=== PATIENT | female | born 1985 | race Caucasian/White ===

== ENCOUNTER 2017-10-29 10:15 | Outpatient (CLI) | payer MEDICAID ==
[2017-10-29 11:07] LABS: APPEARANCE,URINE SLIGHTLY-CLOUDY; BILIRUBIN,URINE NEGATIVE (NEGATIVE); COLOR,URINE YELLOW; GLUCOSE, URINE NEGATIVE (NEGATIVE); KETONES,URINE NEGATIVE (NEGATIVE); LEUKOCYTE ESTERASE,URINE TRACE (NEGATIVE); NITRITE,URINE NEGATIVE (NEGATIVE); PROTEIN,URINE NEGATIVE (NEGATIVE); URINE SPECIFIC GRAVITY 1.014; UROBILINOGEN,URINE NEGATIVE mg/dL (<2.0)
[2017-10-29 11:24] LABS: URINE AMPHETAMINES SCREEN NEGATIVE; URINE BARBITURATES SCREEN NEGATIVE; URINE BENZODIAZEPINES SCREEN NEGATIVE; URINE COCAINE SCREEN NEGATIVE; URINE MARIJUANA (THC) SCREEN NEGATIVE; URINE METHADONE SCREEN NEGATIVE; URINE PHENCYCLIDINE SCREEN NEGATIVE
--- NOTE | 2017-10-29 12:45 | RADIOLOGY REPORT (SQ) ---
EXAM DESCRIPTION: U/S OB TRANSVAG W/DOPPLER COMPLETED DATE/TIME: 10/29/2017 12:29 pm REASON FOR STUDY: Pt stated approx 31wks preg, Please confirm COMPARISON: None. TECHNIQUE: Endovaginal static and realtime grayscale images acquired of the pelvis. Additional selec lucien spectral and color Doppler images recorded. All images stored on PACs. 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 GESTATIONAL SAC: At the junction of the cervix and lower uterine segment, an anechoic cystic structur e 4 mm in size is present. This is likely a nabothian cyst or endometrial cyst. with the unlikely given the negative urine and serum HCG assessment today YOLK SAC: No POLE: No RIGHT ADNEXA: Not visualized due to bowel gas LEFT ADNEXA: Not visualized due to bowel gas FREE FLUID: None. OTHER: No other significant finding. IMPRESSION: Anechoic cystic structure is seen in the lower uterine segment, possibly a nabothian cys t at the superior margin of the cervix or small cyst along the endometrium. A Gestational sac or pse udo gestational sac is unlikely, given that the patient's steroid and urine HCG values today are nega tive. Unable visualize ovaries due to adnexal bowel gas. CONSIDER F/U BHCG AND/OR ULTRASOUND FOR VERIFICATION AND TO EXCLUDE ECTOPIC . Trimester of : First - 0 to 13 weeks. TECHNICAL DOCUMENTATION: JOB ID: [id number] [employer]- All Rights Reserved
== END 2017-10-29 12:58 | disposition home or self-care (01) ==
LOC: LC 10:15
PROVIDERS: ATTEND Student in an Organized Health Care Education/Training Program
DX: O34.03 Maternal care for unspecified congenital malformation of uterus, third trimester (principal); Q51.3 Bicornate uterus; Z3A.31 31 weeks gestation of pregnancy; N91.2 Amenorrhea, unspecified
CPT/HCPCS: 36415; 76817; 80307; 81001; 81025; 84702; 86850; 86900; 86901; 93976

== ENCOUNTER 2019-02-09 22:21 | Emergency (ER) | payer SELFPAY ==
--- NOTE | 2019-02-09 23:46 | ER Document Report ---
ED GI/ - General Chief Complaint: Vaginal Pain Stated Complaint: VAGINAL PAIN Time Seen by Provider: 02/09/19 23:25 Primary Care Provider: [facility] [Provider Group] - Follow up as needed [facility] [Provider Group] - Follow up as needed TRAVEL OUTSIDE OF THE [place] IN LAST 30 DAYS: No - HPI Notes: 02/09/19 23:40 Patient is a 33 year old female who presents to the emergency department today for a one month history of vaginal pain. States that the pain is like a "jabbing", reports itching, reports clear vaginal "liquid" discharge which was originally thick and white one month ago. No vaginal odor. Has attempted OTC medication such as monistat and axo without relief. Denies urinary symptoms. LMP January 28, states having one sexual partner who is her , not concerned about STI's, no use of control but states unable to have sexual intercourse over the past month due to the pain. Patient delayed seeking medical treatment due to insurance issues. Reports vaginal itching. - Related Data Allergies/Adverse Reactions: No Known Allergies Allergy (Unverified 10/29/17 11:45) Past Medical History - General Information source: Patient - Social History Smoking Status: Current Every Day Smoker Cigarette use (# per day): Yes Smoking Education Provided: Yes Lives with: Spouse/Significant other Family History: None - Past Medical History Cardiac Medical History: Reports: None Pulmonary Medical History: Reports: None EENT Medical History: Reports: None Neurological Medical History: Reports: None Endocrine Medical History: Reports: None Renal/ Medical History: Reports: None Malignancy Medical History: Reports: None GI Medical History: Reports: None Musculoskeletal Medical History: Reports None Skin Medical History: Reports None Psychiatric Medical History: Reports: None Traumatic Medical History: Reports: None Infectious Medical History: Reports: None Surgical Hx: Negative Past Surgical History: Reports: Hx Coronary Stent - Stent to aorta at age 7 Review of Systems - Review of Systems Constitutional: No symptoms reported EENT: No symptoms reported Cardiovascular: No symptoms reported Respiratory: No symptoms reported Gastrointestinal: No symptoms reported Genitourinary: No symptoms reported Female Genitourinary: See HPI Musculoskeletal: No symptoms reported Skin: No symptoms reported Hematologic/Lymphatic: No symptoms reported Neurological/Psychological: No symptoms reported Physical Exam - Vital signs Vitals: Temp Pulse Resp BP Pulse Ox 98.1 F 84 20 151/90 H 98 04/23/19 22:23 02/09/19 22:23 02/09/19 22:23 02/09/19 22:23 02/09/19 22:23 - Respiratory Respiratory status: No respiratory distress Chest status: Nontender Breath sounds: Normal Chest palpation: Normal - Cardiovascular Rhythm: Regular Heart sounds: Normal auscultation, S1 appreciated, S2 appreciated Murmur: No - Abdominal Inspection: Normal Distension: No distension Bowel sounds: Normal Tenderness: Nontender Organomegaly: No organomegaly Course - Re-evaluation Re-evalutation: 02/09/19 23:45 Due to chief complaint, will setup for pelvic exam and obtain vaginal specimens. Patient in agreement with plan. Denies questions at this time. 02/10/19 01:39 Updated patient on lab results. We will go ahead and give first dose of Diflucan to treat for yeast. She will also be placed on Keflex for the cellulitis/dermatitis, first dose to be given in the ER. It was also noted that the patient had a large amount of glucose in her urine. Patient denies history of diabetes. States that she has been urinating more frequently. Will obtain a BMP and Hemoglobin A1C. Patient updated on plan of care, at bedside, no acute distress. Patient did state during pelvic exam 1 month ago her and her used an oyvb-bfn-thpgoht lubricant and that the pain, discomfort, and discharge started after this. It was noted that patient's blood glucose was 309. Carbon dioxide 25, anion gap 8, chloride 103. Hemoglobin A1c was 10.9. Patient denies a history of diabetes. Explained in great detail with patient the importance of following up with a primary care provider to manage the diabetes. Patient states that she does not have health insurance. Provide patient at discharge with information for the [facility] and the [facility]. Directed patient and his significant other to call later today to make an appointment as soon as possible. Due to the patient's hemoglobin A1c of 10.9, explained to patient the diabetes appears to have been going on for months which could have led to the increased urinary frequency. Educated patient on limiting high carbohydrate food and foods high in sugar as this can raise the blood sugar. Also explained to patient to take Keflex which is an antibiotic as prescribed for the surrounding cellulitis and affected areas around the vagina. Treated patient with 1 dose of Diflucan prior to discharge and gave patient a prescription for Diflucan to take after completion of her 1 week dose of antibiotic. Instructed patient on strict return precautions to include vomiting, diarrhea, vomiting fever, worsening of vaginal pain, development of an abscess or significant drainage from the vagina, or any other concerning signs or symptoms. Patient can significant other verbalized understanding and denied questions. - Vital Signs Vital signs: Temp Pulse Resp BP Pulse Ox 97.6 F 84 16 142/80 H 100 02/10/19 03:58 02/10/19 03:58 02/10/19 03:58 02/10/19 03:58 02/10/19 03:58 - Laboratory Result Diagrams: 02/10/19 01:45 Laboratory results interpreted by me: 02/10/19 02/10/19 02/10/19 00:12 01:45 01:45 Sodium 136.2 L BUN 6 L Creatinine 0.45 L Glucose 309 H Hemoglobin A1c % 10.9 H Urine Glucose (UA) >=500 H Urine Blood LARGE H Ur Leukocyte Esterase MODERATE H Large amount of glucose noted in the urine. Will obtain BMP and HA1C. Hemoglobin A1c 10.9, Glucose 309, Moderate Leuks in the urine - patient is being prescribed Keflex for her cellulitis and Metformin for blood glucose with strick return precautions. Procedures - Pelvic Exam Pelvic exam Time completed: 13:10 Cultures obtained: Yes Wet prep obtained: Yes Herpes culture obtained: No Foreign body removed: Yes - Small thin 1.5 cm string removed Bimanual exam performed: Yes Witnessed by: Dakotah Yanes PA-C, Nurse Tech Notes: 02/10/19 01:18 Patient complains of rectal irritation - upon exam four external non-thrombosed hemorrhoids noted, around rectum erthyema noted as well as white discharge consistent with yeast. External genitalia showed + swelling, erythema, multiple areas of excoriation with dried scabs, on the right upper posterior thigh one of the scabs had an area of surrounding cellulitis. The area is draining. Discharge - Discharge Clinical Impression: Usha rash of groin Cellulitis Qualifiers: Site of cellulitis: other site Qualified Code(s): L03.818 - Cellulitis of other sites Diabetes Qualifiers: Diabetes mellitus type: type 2 Diabetes mellitus long term care phlebotomist insulin use: unspecified long term care phlebotomist insulin use status Diabetes mellitus complication status: with unspecified complications Qualified Code(s): E11.8 - Type 2 diabetes mellitus with unspecified complications Condition: Stable Disposition: HOME, SELF-CARE Additional Instructions: You were seen today in the emergency department for vaginal pain. You do have a yeast infection externally. We have given you 1 dose of Diflucan while in the ER. We will be prescribing another dose of Diflucan which she will take after the completion of your antibiotic. You also do have a few open wounds and some surrounding cellulitis. These do not need to be cut and drained at this time. Please return if any of these wounds become larger. You are being prescribed Keflex which is an antibiotic. Take as prescribed and complete the full course of medication. It was also noted that you had a significant amount of glucose (sugar) in your urine. We did check some lab work and your blood sugar was in the 300s. It does appear that you have type 2 diabetes. Your yeast infection could be a complication of the diabetes. I am prescribing you metformin. This is a medication used to treat diabetes. 1 of the most common side effects is stomach upset. I am giving you a 1 month prescription as well as one refill. It is imperative that you have close follow-up with a physician. I am referring you to the [facility] as well as the [facility]. These are clinics that help people who do not have insurance. Please call them tomorrow to make an appointment. THIS IS VERY IMPORTANT THAT YOU HAVE FOLLOW UP! Uncontrolled diabetes can lead to heart problems, heart disease, strokes, kidney damage and other medical problems. Please return to the emergency department if you have any worsening symptoms to include vomiting, chest pain, shortness of breath, dizziness, uncontrollable vomiting, fever, worsening vaginal pain that is not getting any better with the antibiotics or the Diflucan. Diabetes You have an abnormally high blood sugar, suspicious for diabetes. Not all high blood sugar requires long-term treatment. High blood sugar can be due to medications, , or the stress of illness. (These cases are "borderline diabetes.") If the doctor feels your high blood sugar might get better with time, you may not require treatment now. You will be scheduled for further evaluation. It's very important that you follow through. Uncontrolled high blood sugar leads to early heart disease, strokes, nerve damage, eye damage, and kidney damage. All diabetics should follow a diet designed to control the blood sugar. Overweight diabetics should exercise regularly and lose weight. If this is not sufficient to control the blood sugar, pills or insulin shots are necessary. Younger people who develop diabetes almost always require insulin daily. Home testing of blood sugars or urine sugar is required. Diabetic teaching is available to help you figure insulin doses and monitor the blood sugar. Call the physician if there is faintness, excess sleepiness, or very rapid breathing. If hypoglycemia (LOW blood sugar) develops, symptoms are shakiness, weakness, sweating, and confusion. In this case, you should eat or drink something with sugar at once. Prescriptions: Cephalexin Monohydrate [Keflex 500 mg Capsule] 500 mg PO Q6H 7 Days #28 capsule Fluconazole [Diflucan] 150 mg PO ONCE PRN #1 tablet PRN Reason: Metformin HCl [Glucophage 500 mg Tablet] 500 mg PO BID #60 tablet Referrals: [facility] [Provider Group] - Follow up as needed [facility] [Provider Group] - Follow up as needed
[2019-02-10 00:36] LABS: APPEARANCE,URINE CLOUDY; BILIRUBIN,URINE NEGATIVE (NEGATIVE); COLOR,URINE YELLOW; GLUCOSE, URINE >=500 mg/dL (NEGATIVE); KETONES,URINE NEGATIVE (NEGATIVE); LEUKOCYTE ESTERASE,URINE MODERATE (NEGATIVE); NITRITE,URINE NEGATIVE (NEGATIVE); PROTEIN,URINE NEGATIVE (NEGATIVE); URINE SPECIFIC GRAVITY 1.033; UROBILINOGEN,URINE NEGATIVE mg/dL (<2.0)
[2019-02-10 01:26] LABS: BACTERIA (WET MOUNT) 4+ BACTERIA SEEN; EPITHELIALS (WET MOUNT) 4+ EPITHELIALS SEEN; RBCS (WET MOUNT) 1+ RBCS SEEN; T.VAGINALIS (WET MOUNT) NO TRICHOMONAS SEEN; WBCS (WET MOUNT) 1+ WBCS SEEN; YEAST (WET MOUNT) NO YEAST SEEN
[2019-02-10] MEDS ORDERED: FLUCONAZOLE 100 MG TABLET PO ONE (01:26)
[2019-02-10] MEDS ORDERED: CEPHALEXIN 500 MG CAPSULE PO ONE (01:27)
[2019-02-10 02:17] LABS: ANION GAP 8 (5-19); BLOOD UREA NITROGEN 6 mg/dL (7-20); CALCIUM 9.3 mg/dL (8.4-10.2); CARBON DIOXIDE 25 mmol/L (22-30); CHLORIDE 103 mmol/L (98-107); GLUCOSE 309 mg/dL (75-110); POTASSIUM 3.8 mmol/L (3.6-5.0); SODIUM 136.2 mmol/L (137-145)
[2019-02-10 02:54] LABS: CHLAM PCR NOT DETECTED (NOT DETECT); GON PCR NOT DETECTED (NOT DETECT)
[2019-02-10 04:01] VITALS: BP 142/80
== END 2019-02-10 04:20 | disposition home or self-care (01) ==
LOC: ER 22:21
DX: B37.49 Other urogenital candidiasis (principal); L03.818 Cellulitis of other sites; E11.8 Type 2 diabetes mellitus with unspecified complications; R10.2 Pelvic and perineal pain; F17.210 Nicotine dependence, cigarettes, uncomplicated
CPT/HCPCS: 36415; 80048; 81001; 81025; 83036; 87210; 87491; 87591; 99283

== ENCOUNTER 2019-08-05 12:21 | Emergency (ER) | payer SELFPAY ==
--- NOTE | 2019-08-05 13:02 | ER Document Report ---
ED Medical Screen (RME) - General Chief Complaint: Vaginal Itching Stated Complaint: VAGINAL PROBLEM Time Seen by Provider: 08/05/19 13:01 Mode of Arrival: Ambulatory Information source: Patient Notes: 33-year-old female presented to ED for complaint of vaginal itching and sores. She states she was here in January for the same symptoms and was diagnosed with bacterial vaginosis and yeast infection. She states they gave her medications and these were cleared up and she has not had any problems until today. She denies any vaginal discharge pain any abdominal pain any nausea or vomiting. Last menstrual cycle started July 29 and ended on the . I have greeted and performed a rapid initial assessment of this patient. A comprehensive ED assessment and evaluation of the patient, analysis of test results and completion of medical decision making process will be conducted by an additional ED providers. TRAVEL OUTSIDE OF THE [place] IN LAST 30 DAYS: No - Related Data Allergies/Adverse Reactions: No Known Allergies Allergy (Verified 08/05/19 12:50) Past Medical History - Social History Chew tobacco use (# tins/day): No Frequency of alcohol use: None Drug Abuse: None Renal/ Medical History: Denies: Hx Peritoneal Dialysis Past Surgical History: Reports: Hx Cardiac Surgery - open heart at 7yo, Hx Coronary Stent - Stent to aorta at age 7 Physical Exam - Vital signs Vitals: Temp Pulse Resp BP Pulse Ox 98.2 F 103 H 18 148/82 H 100 08/05/19 12:50 08/05/19 12:50 08/05/19 12:50 08/05/19 12:50 08/05/19 12:50 Course - Vital Signs Vital signs: Temp Pulse Resp BP Pulse Ox 98.2 F 103 H 18 148/82 H 100 08/05/19 12:50 08/05/19 12:50 08/05/19 12:50 08/05/19 12:50 08/05/19 12:50
--- NOTE | 2019-08-05 14:36 | ER Document Report ---
ED General - General Chief Complaint: Vaginal Itching Stated Complaint: VAGINAL PROBLEM Time Seen by Provider: 08/05/19 13:01 Primary Care Provider: KYLIE GOMEZ DO [ACTIVE STAFF] - Follow up in 3-5 days Mode of Arrival: Ambulatory Information source: Patient TRAVEL OUTSIDE OF THE [place] IN LAST 30 DAYS: No - HPI Notes: Patient presents with complaints of vaginal pain. She states she has a painful vaginal rash. She states she has no vaginal discharge. States she is not concerned about a cyclic transmitted disease. Patient states this rash has been there for 4 to 5 days. She states that it is tender if touched and better if left alone. There is no radiation of the pain. It is moderate and constant. No vaginal bleeding. She has had no fevers or other rashes. - Related Data Allergies/Adverse Reactions: No Known Allergies Allergy (Verified 08/05/19 12:50) Past Medical History - General Information source: Patient - Social History Smoking Status: Current Every Day Smoker Chew tobacco use (# tins/day): No Frequency of alcohol use: None Drug Abuse: None Family History: None Patient has suicidal ideation: No Patient has homicidal ideation: No Renal/ Medical History: Denies: Hx Peritoneal Dialysis Past Surgical History: Reports: Hx Cardiac Surgery - open heart at 7yo, Hx Coronary Stent - Stent to aorta at age 7 Review of Systems - Review of Systems Constitutional: denies: Chills, Fever Cardiovascular: denies: Chest pain, Palpitations Respiratory: denies: Cough, Short of breath Gastrointestinal: denies: Abdominal pain, Diarrhea, Vomiting -: Yes All other systems reviewed and negative Physical Exam - Vital signs Vitals: Temp Pulse Resp BP Pulse Ox 98.2 F 103 H 18 148/82 H 100 08/05/19 12:50 08/05/19 12:50 08/05/19 12:50 08/05/19 12:50 08/05/19 12:50 Interpretation: Hypertensive, Tachycardic - General General appearance: Appears well, Alert - HEENT Head: Normocephalic, Atraumatic Eyes: Normal Pupils: PERRL - Respiratory Respiratory status: No respiratory distress Chest status: Nontender Breath sounds: Normal Chest palpation: Normal - Cardiovascular Rhythm: Regular Heart sounds: Normal auscultation Murmur: No - Abdominal Inspection: Normal Distension: No distension Bowel sounds: Normal Tenderness: Nontender Organomegaly: No organomegaly - Genitourinary External exam: Other - Patient has a rash on the bilateral upper inner thighs as well as in the labia majora and mons pubis. This rash appears consistent with Usha as it has satellite lesions. However there does appear to be some superinfection with possible folliculitis. - Back Back: Normal, Nontender - Extremities General upper extremity: Normal inspection, Nontender, Normal color, Normal ROM, Normal temperature General lower extremity: Normal inspection, Nontender, Normal color, Normal ROM, Normal temperature, Normal weight bearing. No: Capri's sign - Neurological Neuro grossly intact: Yes Cognition: Normal Orientation: AAOx4 Story Coma Scale Eye Opening: Spontaneous Vanna Coma Scale Verbal: Oriented Story Coma Scale Motor: Obeys Commands Story Coma Scale Total: 15 Speech: Normal Motor strength normal: LUE, RUE, LLE, RLE Sensory: Normal - Psychological Associated symptoms: Normal affect, Normal mood - Skin Skin Temperature: Warm Skin Moisture: Dry Skin Color: Normal Course - Re-evaluation Re-evalutation: 08/05/19 15:38 Patient presents with vaginal rash. The rash seems most consistent with a vaginal candidiasis with an overlying superinfection of possible folliculitis. Patient with nystatin cream and Keflex. Patient also was appreciated to have a blood glucose of 353 and is not currently on any medications for this. I will start her on metformin and instruct her on the importance of following up with her primary care physician to make sure that her glucose is been properly treat ed. - Vital Signs Vital signs: Temp Pulse Resp BP Pulse Ox 98.2 F 103 H 18 148/82 H 100 08/05/19 12:50 08/05/19 12:50 08/05/19 12:50 08/05/19 12:50 08/05/19 12:50 - Laboratory Laboratory results interpreted by me: 08/05/19 08/05/19 13:43 14:40 POC Glucose 353 H Urine Glucose (UA) >=500 H Leukocyte Esterase Rfl SMALL H Discharge - Discharge Clinical Impression: Hyperglycemia, Usha albicans infection, Folliculitis Condition: Stable Disposition: HOME, SELF-CARE Instructions: Folliculitis ([facility]), Vaginal Yeast Infection ([facility]), Hyperglycemia ([facility]) Additional Instructions: Your blood sugar is significantly elevated. You need to start metformin for diabetes. You need to make sure you follow-up with a primary care doctor to make sure your blood sugar is being controlled. Also you need to follow-up with your primary care doctor to have your vaginal area reexamined. Prescriptions: Metformin HCl [Glucophage 500 mg Tablet] 500 mg PO BID #60 tablet Cephalexin Monohydrate [Keflex 500 mg Capsule] 500 mg PO Q6H 7 Days #28 capsule Nystatin [Mycostatin Ointment 15 gm] 15 applic TP BID 14 Days #15 tube Referrals: KYLIE GOMEZ DO [ACTIVE STAFF] - Follow up in 3-5 days
[2019-08-05 15:08] LABS: BACTERIA (WET MOUNT) 4+ BACTERIA SEEN; RBCS (WET MOUNT) 1+ RBCS SEEN; T.VAGINALIS (WET MOUNT) NO TRICHOMONAS SEEN; WBCS (WET MOUNT) 2+ WBCS SEEN; YEAST (WET MOUNT) YEAST SEEN
[2019-08-05 15:18] LABS: APPEARANCE,URINE SLIGHTLY-CLOUDY; BILIRUBIN,URINE NEGATIVE (NEGATIVE); COLOR,URINE YELLOW; GLUCOSE, URINE >=500 mg/dL (NEGATIVE); KETONES,URINE NEGATIVE (NEGATIVE); PROTEIN,URINE NEGATIVE (NEGATIVE); URINE SPECIFIC GRAVITY 1.037; UROBILINOGEN,URINE NEGATIVE mg/dL (<2.0)
[2019-08-05 16:04] VITALS: BP 122/80
[2019-08-05 18:07] LABS: CHLAM PCR NOT DETECTED (NOT DETECT)
== END 2019-08-05 16:04 | disposition home or self-care (01) ==
LOC: ER 12:21
DX: B37.9 Candidiasis, unspecified (principal); L73.9 Follicular disorder, unspecified; R73.9 Hyperglycemia, unspecified; F17.200 Nicotine dependence, unspecified, uncomplicated
CPT/HCPCS: 81001; 82962; 87086; 87088; 87210; 87491; 87591

== ENCOUNTER 2019-10-15 12:21 | Emergency (ER) | payer SELFPAY ==
[2019-10-15] MEDS ORDERED: LIDOCAINE 2% VISCOUS SOLN 20 ML UDCUP PO ONE (14:18)
--- NOTE | 2019-10-15 14:21 | ER Document Report ---
HPI - HPI Time Seen by Provider: 10/15/19 14:15 Pain Level: 5 Notes: Patient is a 33-year-old female who presents to the ED complaining of left upper dental pain #281 week. She has not noticed any obvious abscess or purulent discharge. Patient states that she is still able to eat and drink, but does have a decreased p.o. intake due to the pain. She has tried some iwcx-ofo-ummpokp meds with minimal relief. No other concerns or complaints. Denies any headache, fever, head injury, neck pain, hoarseness, drooling, URI, sore throat, chest pain, palpitations, syncope, cough, shortness of breath, wheeze, dyspnea, abdominal pain, nausea/vomiting/diarrhea, urinary retention, dysuria, hematuria, or rash. - ROS Systems Reviewed and Negative: Yes All other systems reviewed and negative - REPRODUCTIVE Reproductive: DENIES: : Past Medical History - Social History Smoking Status: Current Every Day Smoker Frequency of alcohol use: None Drug Abuse: None Family History: None Patient has suicidal ideation: No Patient has homicidal ideation: No Renal/ Medical History: Denies: Hx Peritoneal Dialysis Past Surgical History: Reports: Hx Cardiac Surgery - open heart at 7yo, Hx Coronary Stent - Stent to aorta at age 7 Vertical Provider Document - CONSTITUTIONAL Agree With Documented VS: Yes Notes: PHYSICAL EXAMINATION: GENERAL: Well-appearing, well-nourished and in no acute distress. HEAD: Atraumatic, normocephalic. EYES: Pupils equal round and reactive to light, extraocular movements intact, sclera anicteric, conjunctiva are normal. ENT: Nares patent and without discharge. oropharynx clear without exudates. No tonsilar hypertrophy or erythema. Moist mucous membranes. No sinus tenderness. Uvula midline. No palatine shift. No tongue protrusion. No respiratory compromise. Mouth: Poor dentition. + mild decay and mild gingivitis. No obvious abscess or discharge noted. No facial swelling. + tenderness to tooth #28. NECK: Normal range of motion, supple without lymphadenopathy. No rigidity/meningismus. LUNGS: Breath sounds clear to auscultation bilaterally and equal. No wheezes rales or rhonchi. HEART: Regular rate and rhythm without murmurs, rubs, gallops. NEUROLOGICAL: Cranial nerves grossly intact. Normal speech, normal gait. PSYCH: Normal mood, normal affect. SKIN: Warm, Dry, normal turgor, no rashes or lesions noted. - INFECTION CONTROL TRAVEL OUTSIDE OF THE [place] IN LAST 30 DAYS: No Course - Re-evaluation Re-evalutation: 10/15/19 14:19 Patient is an afebrile, well-hydrated, 33-year-old female who presents to the ED with dental pain, suspect nerve root etiology versus infection. Vitals are acceptable. PE is otherwise unremarkable. No I&D, labs, or imaging warranted at this time based on H&P. Viscous lidocaine dispensed today. I will send her home with a prescription for penicillin. Low suspicion for any meningitis, sepsis, peritonsillar/pharyngeal abscess, respiratory compromise, Dionicio's, temporal arteritis, or other emergent systemic condition at this time. Patient is aware this condition can change from initial presentation and she needs to monitor symptoms closely. Conservative measures otherwise for symptoms. Call to schedule an appointment with a dentist for further evaluation and management. Recheck with your PCM this week as well. Return to the ED with any worsening/concerning symptoms otherwise as reviewed in discharge. Patient is in agreement. - Vital Signs Vital signs: Temp Pulse Resp BP Pulse Ox 98.3 F 90 16 145/81 H 100 10/15/19 12:55 10/15/19 12:55 10/15/19 12:55 10/15/19 12:55 10/15/19 12:55 Discharge - Discharge Clinical Impression: Pain, dental Condition: Stable Disposition: HOME, SELF-CARE Instructions: Penicillin V K ([facility]), Toothache ([facility]) Additional Instructions: [place] and floss twice daily Maintain fluid intake Take antibiotics as directed Mouthwash, salt water gargles, peroxide rinse as needed Tylenol/ibuprofen as needed Recheck with PCM this week Call today/tomorrow and schedule an appointment with your dentist for further evaluation Return to the ED with any worsening symptoms and/or development of fever, headache, facial swelling, swelling of lips/tongue/throat, trouble swallowing, drooling, hoarseness, neck pain/stiffness, chest pain, palpitations, syncope, shortness of breath, trouble breathing, abdominal pain, n/v/d, numbness/tingling, or other worsening symptoms that are concerning to you. Prescriptions: Ibuprofen [Motrin 800 mg Tablet] 800 mg PO Q8H PRN #15 tab PRN Reason: Penicillin V Potassium [Penicillin Vk 250 mg Tablet] 500 mg PO BID #40 tablet Forms: Elevated Blood Pressure, Smoking Cessation Education Referrals: [facility] [Provider Group] - Follow up in 1 week
[2019-10-15 14:45] VITALS: BP 142/78
== END 2019-10-15 14:46 | disposition home or self-care (01) ==
LOC: ER 12:21
DX: K02.9 Dental caries, unspecified (principal); K05.10 Chronic gingivitis, plaque induced; K08.89 Other specified disorders of teeth and supporting structures; F17.200 Nicotine dependence, unspecified, uncomplicated
CPT/HCPCS: 99282; J3490

== ENCOUNTER 2020-05-11 15:04 | Emergency (ER) | payer SELFPAY ==
[2020-05-11 15:11] VITALS: BP 148/83
[2020-05-11] MEDS ORDERED: OXYCODONE-ACETAMINOPHEN 5-325 MG TABLET PO ONE (15:12)
--- NOTE | 2020-05-11 15:14 | ER Document Report ---
ED Medical Screen (RME) - General Chief Complaint: Abscess Stated Complaint: ABSCESS Time Seen by Provider: 05/11/20 15:08 Mode of Arrival: Ambulatory Information source: Patient Notes: 34-year-old female presented to ED for abscess in the left axilla. She states is been there for about 2 days. She states it is a 5 out of 5 pain. She is having trouble moving the arm due to the pain. She is alert oriented respirations regular nonlabored speaking in full sentences. She states she has had multiple abscesses in the past and has had I&D's of them. She states they all hurt as bad as this 1. Patient will need an I&D of this abscess. I have treated her with 1 Percocet in the triage for her pain. I have greeted and performed a rapid initial assessment of this patient. A comprehensive ED assessment and evaluation of the patient, analysis of test results and completion of medical decision making process will be conducted by an additional ED providers. TRAVEL OUTSIDE OF THE [place] IN LAST 30 DAYS: No - Related Data Allergies/Adverse Reactions: No Known Allergies Allergy (Verified 08/05/19 12:50) Past Medical History Renal/ Medical History: Denies: Hx Peritoneal Dialysis Past Surgical History: Reports: Hx Cardiac Surgery - open heart at 7yo, Hx Coronary Stent - Stent to aorta at age 7 Physical Exam - Vital signs Vitals: Temp Pulse Resp BP Pulse Ox 98.7 F 117 H 18 148/83 H 100 05/11/20 15:09 05/11/20 15:09 05/11/20 15:09 05/11/20 15:09 05/11/20 15:09 Course - Vital Signs Vital signs: Temp Pulse Resp BP Pulse Ox 98.7 F 117 H 18 148/83 H 100 05/11/20 15:09 05/11/20 15:09 05/11/20 15:09 05/11/20 15:09 05/11/20 15:09
[2020-05-11] MEDS ORDERED: ONDANSETRON HCL INJ/PF 4 MG/2 ML SDV IV ONE (15:55)
[2020-05-11] MEDS ORDERED: NORMAL SALINE 1000 ML 1,000 ML IV ONE (15:55)
[2020-05-11] MEDS ORDERED: MORPHINE SULFATE 10 MG/ML INJ IV ONE (15:55)
[2020-05-11] MEDS ORDERED: LIDOCAINE 1% INJ (10 MG/ML) 10 ML MDV INJ ONE (15:56)
[2020-05-11] MEDS ORDERED: CEPHALEXIN 500 MG CAPSULE PO ONE (16:00)
[2020-05-11] MEDS ORDERED: SULFAMETHOXAZOLE/TRIMETHOPRIM 800-160 MG TABLET PO ONE (16:00)
--- NOTE | 2020-05-11 16:01 | ER Document Report ---
ED Skin Rash/Insect Bite/Abscs - General Chief Complaint: Abscess Stated Complaint: ABSCESS Time Seen by Provider: 05/11/20 15:08 Primary Care Provider: [facility] [Provider Group] - Follow up as needed Mode of Arrival: Ambulatory Information source: Patient Notes: Patient presents complaining of abscess to the left axilla into the left buttock. Patient states lesions have been there for the past 2 days. Patient does have a previous history of abscess although denies any history of MRSA. Patient denies any fever. Patient tachycardic at this time although she attributes this to her pain. Patient denies any fever. TRAVEL OUTSIDE OF THE [place] IN LAST 30 DAYS: No - HPI Patient complains to provider of: Tender/swollen area Onset: Other - 2 days Onset/Duration: Worse Quality of pain: Sharp Pain Level: 5 Skin Character: Abscess, Tenderness, Warm Skin Temperature: Warm Quality of rash: Painful Exacerbated by: Movement Relieved by: Denies Similar symptoms previously: Yes Recently seen / treated by doctor: No - Related Data Allergies/Adverse Reactions: No Known Allergies Allergy (Verified 08/05/19 12:50) Home Medications: vitamin b Past Medical History - General Information source: Patient - Social History Smoking Status: Current Every Day Smoker Chew tobacco use (# tins/day): No Frequency of alcohol use: None Drug Abuse: None Occupation: None Lives with: Family Family History: None Patient has homicidal ideation: No - Medical History Medical History: Negative Renal/ Medical History: Denies: Hx Peritoneal Dialysis Past Surgical History: Reports: Hx Cardiac Surgery - open heart at 7yo, Hx Coronary Stent - Stent to aorta at age 7 Review of Systems - Review of Systems Constitutional: No symptoms reported. denies: Fever EENT: No symptoms reported Cardiovascular: No symptoms reported. denies: Chest pain Respiratory: No symptoms reported. denies: Cough Gastrointestinal: No symptoms reported. denies: Nausea, Vomiting Genitourinary: No symptoms reported Female Genitourinary: No symptoms reported Musculoskeletal: No symptoms reported Skin: Other - Abscess to left axilla and left buttock Hematologic/Lymphatic: No symptoms reported Neurological/Psychological: No symptoms reported Physical Exam - Vital signs Vitals: Temp Pulse Resp BP Pulse Ox 98.7 F 117 H 18 148/83 H 100 05/11/20 15:09 05/11/20 15:09 05/11/20 15:09 05/11/20 15:09 05/11/20 15:09 - General General appearance: Appears well, Alert, Anxious In distress: None - HEENT Head: Normocephalic, Atraumatic Eyes: Normal Conjunctiva: Normal Nasal: Normal Mouth/Lips: Normal Mucous membranes: Normal Neck: Normal, Supple. No: Lymphadenopathy - Respiratory Respiratory status: No respiratory distress Chest status: Nontender Breath sounds: Normal. No: Rales, Rhonchi, Stridor, Wheezing Chest palpation: Normal - Cardiovascular Rhythm: Tachycardia Heart sounds: S1 appreciated, S2 appreciated Murmur: No - Abdominal Inspection: Normal Distension: No distension Tenderness: Nontender - Extremities General upper extremity: Normal inspection, Normal strength General lower extremity: Normal inspection, Normal strength - Neurological Neuro grossly intact: Yes Cognition: Normal [place] Coma Scale Eye Opening: Spontaneous [place] Coma Scale Verbal: Oriented [place] Coma Scale Motor: Obeys Commands [place] Coma Scale Total: 15 - Psychological Associated symptoms: Normal affect, Normal mood - Skin Skin Temperature: Warm Skin Moisture: Dry Skin Color: Erythema - Erythema to left axilla Skin irregularity: Abscess - Abscess to left axilla that measures 1.5 cm in diameter with surrounding area of erythema worrisome for developing cellulitis, left buttock abscess 1 cm diameter with small area of erythema. No perianal involvement Course - Re-evaluation Re-evalutation: 05/11/20 18:03 Incision and drainage procedure performed with good results. Patient tolerated well. Patient anxious which likely accounts for tachycardia. When patient is calm tachycardia resolves. Good return precautions discussed with patient. Patient nontoxic in appearance. - Vital Signs Vital signs: Temp Pulse Resp BP Pulse Ox 98.7 F 117 H 18 148/83 H 100 05/11/20 15:11 05/11/20 15:09 05/11/20 15:09 05/11/20 15:09 05/11/20 15:09 Procedures - Incision and Drainage Left Arm Type: Simple Anesthetic type: 1% Lidocaine Blade size: 11 I&D procedure: Betadine prep applied Incision Method: Incision made by scalpel Amount/type of drainage: mod amount of purulen drainage Left Buttock Type: Simple Anesthetic type: 1% Lidocaine Blade size: 11 I&D procedure: Betadine prep applied Incision Method: Incision made by scalpel Amount/type of drainage: small amount of purulent drainage Adult Front & Back picture: 1 - abscess Discharge - Discharge Clinical Impression: Abscess of left axilla, Left buttock abscess, Encounter for incision and drainage procedure Condition: Stable Disposition: HOME, SELF-CARE Instructions: Abscess ([facility]), Cephalexin ([facility]), Oral Narcotic Medication ([facility]), Post Incision and Drainage, Trimethoprim-Sulfa ([facility]) Additional Instructions: Return immediately for any new or worsening symptoms Followup with your primary care provider, call tomorrow to make a followup appointment Wound cultures pending, we will call if you need any different treatment Prescriptions: Sulfamethoxazole/Trimethoprim [Bactrim Ds Tablet] 1 each PO BID #20 tablet Mupirocin [Bactroban 2% Ointment 22 gm] 1 applic TP TID #22 gm Cephalexin Monohydrate [Keflex 500 mg Capsule] 500 mg PO Q6H 5 Days #20 capsule Hydrocodone/Acetaminophen [Bucyrus 5-325 mg Tablet] 1 tab PO Q6 PRN #10 tablet PRN Reason: Referrals: [facility] [Provider Group] - Follow up as needed
== END 2020-05-11 18:53 | disposition home or self-care (01) ==
LOC: ER 15:04
DX: L02.412 Cutaneous abscess of left axilla (principal); L02.31 Cutaneous abscess of buttock; F17.200 Nicotine dependence, unspecified, uncomplicated
CPT/HCPCS: 99283; 96361; 96374; 96375; 87070; 87205; 10061; J2270; J2405; J7030; 87077

== ENCOUNTER 2020-07-01 20:23 | Emergency (ER) | payer SELFPAY ==
[2020-07-01] MEDS ORDERED: NORMAL SALINE 1000 ML 1,000 ML IV ONE (20:35)
[2020-07-01] MEDS ORDERED: ONDANSETRON HCL INJ/PF 4 MG/2 ML SDV IV ONE (20:35)
--- NOTE | 2020-07-01 20:39 | ER Document Report ---
ED Medical Screen (RME) - General Chief Complaint: Abdominal Pain Stated Complaint: ABDOMINAL PAIN/VOMITING Time Seen by Provider: 07/01/20 20:30 Notes: Patient is a 34-year-old female who presents emergency department with a chief complaint of abdominal pain, nausea, and vomiting. Patient states that she fell "queasy" yesterday and she went to work. Patient states that while she was at work, she continued to not feel well. When she got home last night, she ended up vomiting multiple times. Patient states that her last bowel movement was about 2 days ago. Last menstrual cycle was 2 weeks ago. States that she has a "bad gallbladder." Stated that her pain was mainly in the right lower quadrant. Exam: Tender mid lower abdomen. I have greeted and performed a rapid initial assessment of this patient. A comprehensive ED assessment and evaluation of the patient, analysis of test results and completion of medical decision making process will be conducted by an additional ED providers. TRAVEL OUTSIDE OF THE [place] IN LAST 30 DAYS: No - Related Data Allergies/Adverse Reactions: No Known Allergies Allergy (Verified 07/01/20 20:34) Past Medical History Renal/ Medical History: Denies: Hx Peritoneal Dialysis Past Surgical History: Reports: Hx Cardiac Surgery - open heart at 7yo, Hx Coronary Stent - Stent to aorta at age 7
[2020-07-01] MEDS ORDERED: ONDANSETRON 4 MG TAB.RAPDIS PO ONE (20:53)
[2020-07-01 21:05] LABS: ABSOLUTE BASOPHILS # (AUTO) 0.1 10^3/uL (0.0-0.2); ABSOLUTE EOSINOPHILS # (AUTO) 0.3 10^3/uL (0.0-0.6); ABSOLUTE LYMPHOCYTES (AUTO) 2.9 10^3/uL (0.5-4.7); ABSOLUTE MONOCYTES (AUTO) 0.6 10^3/uL (0.1-1.4); ABSOLUTE NEUT (AUTO) 7.3 10^3/uL (1.7-8.2); BASOPHILS % (AUTO) 0.8 % (0-2); EOSINOPHILS % (AUTO) 2.3 % (0-6); HEMATOCRIT 45.7 % (36.0-47.0); HEMOGLOBIN 15.6 g/dL (12.0-15.5); LYMPHOCYTES % (AUTO) 26.4 % (13-45); MEAN CORPUSCULAR HEMOGLOBIN 30.3 pg (27.0-33.4); MEAN CORPUSCULAR VOLUME 89 fl (80-97); MONOCYTES % (AUTO) 5.1 % (3-13); PLATELET COUNT 276 10^3/uL (150-450); RED BLOOD COUNT 5.14 10^6/uL (3.72-5.28); RED CELL DISTRIBUTION WIDTH 13.2 % (11.5-14.0); SEGMENTED NEUTROPHILS % (AUTO) 65.4 % (42-78); TOTAL CELLS COUNTED % (AUTO) 100 %; WHITE BLOOD COUNT 11.1 10^3/uL (4.0-10.5)
[2020-07-01 21:16] LABS: ALBUMIN 4.1 g/dL (3.5-5.0); ALKALINE PHOSPHATASE 160 U/L (38-126); ANION GAP 8 (5-19); ASPARTATE AMINO TRANSFERASE 56 U/L (14-36); BILIRUBIN,DIRECT 0.3 mg/dL (0.0-0.4); BILIRUBIN,TOTAL 0.3 mg/dL (0.2-1.3); BLOOD UREA NITROGEN 7 mg/dL (7-20); CALCIUM 9.3 mg/dL (8.4-10.2); CARBON DIOXIDE 24 mmol/L (22-30); CHLORIDE 101 mmol/L (98-107); GLUCOSE 355 mg/dL (75-110); POTASSIUM 4.1 mmol/L (3.6-5.0)
[2020-07-01 21:17] LABS: APPEARANCE,URINE SLIGHTLY-CLOUDY; BILIRUBIN,URINE NEGATIVE (NEGATIVE); COLOR,URINE YELLOW; GLUCOSE, URINE >=500 mg/dL (NEGATIVE); KETONES,URINE NEGATIVE (NEGATIVE); LEUKOCYTE ESTERASE,URINE NEGATIVE (NEGATIVE); NITRITE,URINE NEGATIVE (NEGATIVE); PROTEIN,URINE NEGATIVE (NEGATIVE); UROBILINOGEN,URINE NEGATIVE mg/dL (<2.0)
[2020-07-01] MEDS ORDERED: MORPHINE SULFATE 10 MG/ML INJ IV ONE (23:23)
--- NOTE | 2020-07-01 23:24 | ER Document Report ---
ED GI/ - General Chief Complaint: Abdominal Pain Stated Complaint: ABDOMINAL PAIN/VOMITING Time Seen by Provider: 07/01/20 20:30 Primary Care Provider: DIOGO DIAZ MD [ACTIVE STAFF] - Follow up in 3-5 days (Call to schedule an outpatient follow-up appointment for your elevated liver enzymes) HARI LAU MD [ACTIVE STAFF] - Follow up in 3-5 days (Call for outpatient follow-up appointment.) Mode of Arrival: Ambulatory Information source: Patient Notes: 34-year-old female with a past medical history significant for diabetes presents to the emergency room complaining of sharp stabbing lower abdominal pain that started yesterday. She complains of nausea with vomiting today. No fevers. No urinary symptoms. No bad food she can think of. No one else at home is ill. No medications for symptoms. TRAVEL OUTSIDE OF THE [place] IN LAST 30 DAYS: No - Related Data Allergies/Adverse Reactions: No Known Allergies Allergy (Verified 07/01/20 20:34) Past Medical History - General Information source: Patient - Social History Smoking Status: Former Smoker Frequency of alcohol use: None Drug Abuse: None Family History: None Patient has homicidal ideation: No Renal/ Medical History: Denies: Hx Peritoneal Dialysis Past Surgical History: Reports: Hx Cardiac Surgery - open heart at 7yo, Hx Coronary Stent - Stent to aorta at age 7 Review of Systems - Review of Systems Constitutional: No symptoms reported EENT: No symptoms reported Cardiovascular: No symptoms reported Respiratory: No symptoms reported Gastrointestinal: Abdominal pain, Nausea, Vomiting. denies: Diarrhea, Constipation Genitourinary: No symptoms reported Musculoskeletal: No symptoms reported Skin: No symptoms reported Neurological/Psychological: No symptoms reported -: Yes All other systems reviewed and negative Physical Exam - Vital signs Vitals: Temp 97.9 F 07/01/20 20:34 - General General appearance: Appears well, Alert In distress: Moderate - Respiratory Respiratory status: No respiratory distress Chest status: Nontender Breath sounds: Normal Chest palpation: Normal - Cardiovascular Rhythm: Regular Heart sounds: Normal auscultation Murmur: No - Abdominal Inspection: Normal Distension: No distension Bowel sounds: Normal Tenderness: Tender - Generalized tenderness on palpation.. No: McBurney's p oint, Walker's sign, Guarding, Rebound Organomegaly: No organomegaly - Back Back: Normal, Nontender. No: CVA tenderness - Neurological Neuro grossly intact: Yes Cognition: Normal Orientation: AAOx4 [place] Coma Scale Eye Opening: Spontaneous [place] Coma Scale Verbal: Oriented [place] Coma Scale Motor: Obeys Commands [place] Coma Scale Total: 15 Speech: Normal Motor strength normal: LUE, RUE, LLE, RLE Sensory: Normal - Skin Skin Temperature: Warm Skin Moisture: Dry Skin Color: Normal Course - Re-evaluation Re-evalutation: 07/02/20 01:32 Patient is resting comfortably with decreased pain. Reviewed all lab and CAT scan results with patient. Patient with elevated liver enzymes. Will get abdominal ultrasound. Patient is agreeable to additional testing. 07/02/20 03:39 Patient with increasing pain after returning from ultrasound. Will give additional IV medication. 07/02/20 04:15 Patient is resting comfortably pain-free on exam. Nonsurgical belly. She is able to tolerate p.o. fluids. Reviewed ultrasound results with patient. Counseled on the importance of following up outpatient with her primary care physician and/or nurse practitioner manager for her elevated liver enzymes. Recommend a bland diet. Patient was given strict return to the emergency room guidelines. Return for any new or worsening symptoms. All questions were answered. Patient verbalized understanding and agrees with plan of care. - Vital Signs Vital signs: Temp Pulse Resp BP Pulse Ox 97.6 F 81 15 139/77 H 100 07/02/20 05:05 07/02/20 05:05 07/02/20 05:05 07/02/20 05:05 07/02/20 05:05 - Laboratory Result Diagrams: 07/01/20 20:48 07/01/20 20:48 Laboratory results interpreted by me: 07/01/20 07/01/20 07/01/20 20:48 20:48 20:48 WBC 11.1 H Hgb 15.6 H Sodium 133.2 L Creatinine 0.51 L Glucose 355 H AST 56 H ALT 64 H Alkaline Phosphatase 160 H Amylase Lipase 1148.1 H Urine Glucose (UA) >=500 H 07/01/20 20:48 WBC Hgb Sodium Creatinine Glucose AST ALT Alkaline Phosphatase Amylase 131 H Lipase Urine Glucose (UA) - Diagnostic Test Radiology reviewed: Reports reviewed Discharge - Discharge Clinical Impression: Abdominal pain of unknown etiology, Elevated liver enzymes Condition: Stable Disposition: HOME, SELF-CARE Instructions: Abdominal Pain ([facility]), Liver Function Abnormality ([facility]), Low-Fat Diet ([facility]) Prescriptions: Ondansetron [Zofran Odt 4 mg Tablet] 1 tab PO Q4H PRN #15 tab.rapdis PRN Reason: For Nausea/Vomiting Forms: Return to Work Referrals: DIOGO DIAZ MD [ACTIVE STAFF] - Follow up in 3-5 days (Call to schedule an outpatient follow-up appointment for your elevated liver enzymes) HARI LAU MD [ACTIVE STAFF] - Follow up in 3-5 days (Call for outpatient follow-up appointment.)
--- NOTE | 2020-07-02 01:04 | RADIOLOGY REPORT (SQ) ---
CLINICAL INDICATION: abdominal pain. . TECHNIQUE: Contrast enhanced spiral axial CT imaging was obtained of the abdomen and pelvis with multiplanar reconstructions. This exam was performed according to our departmental dose-optimization program, which includes automated exposure control, adjustment of the mA and/or kV according to patient size and/or use of iterative reconstruction techniques. Additional delayed phase imaging COMPARISON: None. CORRELATION: None. FINDINGS: Abdomen: The lung bases are grossly clear. The heart is of normal size. No evidence of pleural or pericardial fluid. The liver is of normal size contour and attenuation. The gallbladder is nondistended without inflammatory change. The pancreas is unremarkable. The spleen is unremarkable. The adrenals are unremarkable. The kidneys appear grossly normal without evidence of urolithiasis or hydronephrosis. 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 No free fluid. No bulky adenopathy. Abdominal aorta is nonaneurysmal. Pelvis: The bowel is nonobstructed. The bowel is unopacified with oral contrast. Pelvic contents are unremarkable. The appendix is normal. Visualized bones are unremarkable. IMPRESSION: No acute intra-abdominal process is identified. The cause of the patient's abdominal pain is not identified on this examination..
[2020-07-02] MEDS ORDERED: MORPHINE SULFATE 10 MG/ML INJ IV ONE (03:38)
--- NOTE | 2020-07-02 04:02 | RADIOLOGY REPORT (SQ) ---
Ultrasound abdomen complete on 07/02/2020 at 3:12 AM CLINICAL INDICATION: Generalized abdominal pain COMPARISON: CT from 07/02/2020 FINDINGS: Multiple sonographic images are obtained throughout the abdomen, both transverse and sagittal images are obtained. Visualized pancreas is unremarkable. Visualized aorta and IVC are unremarkable without evidence of an aneurysm. Visualized liver is homogeneous without focal liver lesion or evidence of intrahepatic biliary ductal dilatation. Visualized hepatic vasculature is patent and with a normal directional flow. Gallbladder is somewhat contracted likely related to patient not being properly n.p.o. No gallstones, gallbladder wall thickening or pericholecystic fluid is noted. The common duct measures 4 mm which is within normal limits mitigating against obstruction of the biliary tree. Right kidney measures 13.9 cm in greatest kyxe-ow-yahz length. There is evidence of a duplicated right renal collecting system with cortical tissue extending through the midline and this is confirmed on the CT with two right proximal ureters. Right kidney otherwise appears normal in size and morphology and without hydronephrosis. Left kidney measures approximately 13 cm in greatest tyid-ur-rzom length. Left kidney appears normal in size and morphology and without hydronephrosis. Spleen measures 11.8 cm in greatest usyn-zk-otmu length with is within normal limits and appears homogeneous. No free fluid is noted in the abdomen. IMPRESSION: Essentially unremarkable exam.
[2020-07-02 05:06] VITALS: BP 139/77
== END 2020-07-02 05:06 | disposition home or self-care (01) ==
LOC: ER 20:23
DX: R10.30 Lower abdominal pain, unspecified (principal); R74.8 Abnormal levels of other serum enzymes; R11.2 Nausea with vomiting, unspecified
CPT/HCPCS: 96376; 99285; 96361; 96374; 36415; 82150; 83690; 85025; 81025; 80053; 81001; 76700; 93976; 74177; S0119; J2270 ×2; J7030

== ENCOUNTER 2020-11-08 11:07 | Emergency (ER) | payer SELFPAY ==
--- NOTE | 2020-11-08 11:50 | ER Document Report ---
ED Medical Screen (RME) - General Chief Complaint: Flank Pain Stated Complaint: FLANK PAIN Time Seen by Provider: 11/08/20 11:46 Notes: Patient is a 34-year-old female who presents emergency department with a chief complaint of bilateral flank pain. Patient reports this developed yesterday. Patient reports she has a history of kidney stones and that this feels the same. Patient reports she has had multiple kidney stones in the past that did resolve with Flomax. Patient states that she has having some burning with urination. Denies vomiting, nausea, chills or fever. Denies abdominal pain. Denies vaginal discharge. Patient is a type II diabetic who is not currently taking medications due to financial issues. TRAVEL OUTSIDE OF THE [place] IN LAST 30 DAYS: No - Related Data Allergies/Adverse Reactions: No Known Allergies Allergy (Verified 07/01/20 20:34) Past Medical History - Social History Frequency of alcohol use: None Drug Abuse: None Renal/ Medical History: Denies: Hx Peritoneal Dialysis Past Surgical History: Reports: Hx Cardiac Surgery - open heart at 7yo, Hx Coronary Stent - Stent to aorta at age 7 Physical Exam - Vital signs Vitals: Temp Pulse Resp BP Pulse Ox 98.3 F 108 H 16 157/91 H 99 11/08/20 11:10 11/08/20 11:10 11/08/20 11:10 11/08/20 11:10 11/08/20 11:10 - Abdominal Inspection: Normal Distension: No distension Bowel sounds: Normal Tenderness: Nontender Course - Re-evaluation Re-evalutation: 11/08/20 11:49 We will obtain basic labs as well as urinalysis to start. I have greeted and performed a rapid initial assessment of this patient. A comprehensive ED assessment and evaluation of the patient, analysis of test results and completion of the medical decision making process will be conducted by additional ED providers. - Vital Signs Vital signs: Temp Pulse Resp BP Pulse Ox 98.3 F 108 H 16 157/91 H 99 11/08/20 11:10 11/08/20 11:10 11/08/20 11:10 11/08/20 11:10 11/08/20 11:10
[2020-11-08 12:19] LABS: ABSOLUTE BASOPHILS # (AUTO) 0.1 10^3/uL (0.0-0.2); ABSOLUTE EOSINOPHILS # (AUTO) 0.2 10^3/uL (0.0-0.6); ABSOLUTE LYMPHOCYTES (AUTO) 3.1 10^3/uL (0.5-4.7); ABSOLUTE MONOCYTES (AUTO) 0.6 10^3/uL (0.1-1.4); ABSOLUTE NEUT (AUTO) 7.9 10^3/uL (1.7-8.2); EOSINOPHILS % (AUTO) 1.3 % (0-6); HEMATOCRIT 46.1 % (36.0-47.0); HEMOGLOBIN 16.2 g/dL (12.0-15.5); LYMPHOCYTES % (AUTO) 25.8 % (13-45); MEAN CORPUSCULAR HEMOGLOBIN 30.6 pg (27.0-33.4); MEAN CORPUSCULAR HGB CONC 35.1 g/dL (32.0-36.0); MEAN CORPUSCULAR VOLUME 87 fl (80-97); MONOCYTES % (AUTO) 4.7 % (3-13); PLATELET COUNT 240 10^3/uL (150-450); RED BLOOD COUNT 5.29 10^6/uL (3.72-5.28); RED CELL DISTRIBUTION WIDTH 13.2 % (11.5-14.0); SEGMENTED NEUTROPHILS % (AUTO) 67.2 % (42-78); TOTAL CELLS COUNTED % (AUTO) 100 %; WHITE BLOOD COUNT 11.8 10^3/uL (4.0-10.5)
[2020-11-08 12:33] LABS: APPEARANCE,URINE CLEAR; BILIRUBIN,URINE NEGATIVE (NEGATIVE); COLOR,URINE STRAW; GLUCOSE, URINE >=500 mg/dL (NEGATIVE); KETONES,URINE NEGATIVE (NEGATIVE); LEUKOCYTE ESTERASE,URINE NEGATIVE (NEGATIVE); NITRITE,URINE NEGATIVE (NEGATIVE); PROTEIN,URINE NEGATIVE (NEGATIVE); URINE SPECIFIC GRAVITY 1.033; UROBILINOGEN,URINE NEGATIVE mg/dL (<2.0)
[2020-11-08 12:47] LABS: ALBUMIN 4.1 g/dL (3.5-5.0); ALKALINE PHOSPHATASE 159 U/L (38-126); ANION GAP 7 (5-19); ASPARTATE AMINO TRANSFERASE 41 U/L (14-36); BILIRUBIN,DIRECT 0.2 mg/dL (0.0-0.4); BILIRUBIN,TOTAL 0.5 mg/dL (0.2-1.3); BLOOD UREA NITROGEN 7 mg/dL (7-20); CALCIUM 9.2 mg/dL (8.4-10.2); CARBON DIOXIDE 30 mmol/L (22-30); CHLORIDE 98 mmol/L (98-107); GLUCOSE 393 mg/dL (75-110); POTASSIUM 3.9 mmol/L (3.6-5.0); TOTAL PROTEIN 7.2 g/dL (6.3-8.2)
[2020-11-08] MEDS ORDERED: NORMAL SALINE 1000 ML 1,000 ML IV ONE ×2 (13:15→13:50)
[2020-11-08] MEDS ORDERED: HYDROCODONE/ACETAMINOPHEN 5-325 MG TABLET PO ONE (13:51)
[2020-11-08] MEDS ORDERED: INSULIN REG, HUMAN 100 UNIT/ML 3 ML VIAL (PYX) SUBCUT ONE (13:51)
[2020-11-08] MEDS ORDERED: KETOROLAC TROMETHAMINE INJ/PF 30 MG/1 ML SDV IV ONE (13:51)
--- NOTE | 2020-11-08 13:54 | ER Document Report ---
ED General - General Chief Complaint: Flank Pain Stated Complaint: FLANK PAIN Time Seen by Provider: 11/08/20 11:46 Primary Care Provider: [facility] [Provider Group] - Follow up tomorrow Mode of Arrival: Ambulatory Information source: Patient Notes: Patient presents complaining of bilateral flank pain that started yesterday. Patient states she has had some dysuria symptoms today. Patient denies any fever, nausea or vomiting. Patient denies any abdominal tenderness. Patient does report a history of diabetes although reports lack of insurance and does not take anything for her diabetes. TRAVEL OUTSIDE OF THE [place] IN LAST 30 DAYS: No - HPI Onset: Yesterday Onset/Duration: Gradual Quality of pain: Achy Pain Level: 4 Associated symptoms: denies: Chest pain, Nonproductive cough, Productive cough, Fever, Nausea, Vomiting Exacerbated by: Movement Relieved by: Denies Similar symptoms previously: No Recently seen / treated by doctor: No - Related Data Allergies/Adverse Reactions: No Known Allergies Allergy (Verified 07/01/20 20:34) Past Medical History - General Information source: Patient - Social History Smoking Status: Current Every Day Smoker Frequency of alcohol use: None Drug Abuse: None Occupation: results Lives with: Family Family History: None Endocrine Medical History: Reports: Hx Diabetes Mellitus Type 2 Renal/ Medical History: Reports: Hx Kidney Stones. Denies: Hx Peritoneal Dialysis Past Surgical History: Reports: Hx Cardiac Surgery - open heart at 7yo, Hx Coronary Stent - Stent to aorta at age 7 Review of Systems - Review of Systems Constitutional: No symptoms reported. denies: Fever EENT: No symptoms reported Cardiovascular: No symptoms reported. denies: Chest pain Respiratory: No symptoms reported. denies: Cough Gastrointestinal: No symptoms reported. denies: Abdominal pain, Nausea, Vomiting Genitourinary: Flank pain. denies: Dysuria, Hematuria Female Genitourinary: No symptoms reported Musculoskeletal: No symptoms reported Skin: No symptoms reported Hematologic/Lymphatic: No symptoms reported Neurological/Psychological: No symptoms reported Physical Exam - Vital signs Vitals: Temp Pulse Resp BP Pulse Ox 98.3 F 108 H 16 157/91 H 99 11/08/20 11:10 11/08/20 11:10 11/08/20 11:10 11/08/20 11:10 11/08/20 11:10 - Notes Notes: PHYSICAL EXAMINATION: GENERAL: Well-appearing and in no acute distress. HEAD: Atraumatic, normocephalic. EYES: sclera anicteric, conjunctiva are normal. ENT: nares patent. Moist mucous membranes. NECK: Normal range of motion, supple without lymphadenopathy LUNGS: CTAB and equal. No wheezes rales or rhonchi. HEART: Regular rate and rhythm without murmurs ABDOMEN: Obese, soft, nontender, normal bowel sounds, no guarding. EXTREMITIES: Normal range of motion, no pitting edema. No cyanosis. BACK: No midline tenderness, no step-off or deformity. Bilateral CVA tenderness NEUROLOGICAL: Cranial nerves grossly intact. Normal speech. Normal gait. PSYCH: Normal mood, normal affect. SKIN: Warm, Dry, normal turgor, no rashes or lesions noted Course - Re-evaluation Re-evalutation: 11/08/20 16:15 Patient with flank tenderness, no evidence of any UTI, no concern for any obstructive uropathy. Patient nontoxic in appearance although does have elevated blood sugar at this time. No concern for DKA at this time. Patient was drinking cranberry juice. Patient encouraged to maintain a diabetic diet and avoid concentrated sweets to help with her diabetes. Discharge planning referral made as patient does not have a primary doctor or insurance and reports inability to afford any diabetes medications. Osmany Albert will be back to speak with patient prior to her discharge. - Vital Signs Vital signs: Temp Pulse Resp BP Pulse Ox 98.3 F 81 16 145/75 H 100 11/08/20 11:10 11/08/20 16:43 11/08/20 16:43 11/08/20 16:43 11/08/20 16:43 - Laboratory Results Result Diagrams: 11/08/20 12:00 11/08/20 12:00 Laboratory Results Interpreted: 11/08/20 11/08/20 11/08/20 11:55 12:00 12:00 WBC 11.8 H RBC 5.29 H Hgb 16.2 H Sodium 134.9 L Glucose 393 H AST 41 H ALT 50 H Alkaline Phosphatase 159 H Lipase Urine Glucose (UA) >=500 H 11/08/20 12:00 WBC RBC Hgb Sodium Glucose AST ALT Alkaline Phosphatase Lipase 474.7 H Urine Glucose (UA) 11/08/20 16:15 Labs- All tests 24 hr 11/08/20 11/08/2021 11:55 12:00 12:00 WBC 11.8 H RBC 5.29 H Hgb 16.2 H Hct 46.1 MCV 87 MCH 30.6 MCHC 35.1 RDW 13.2 Plt Count 240 Lymph % (Auto) 25.8 [place] % (Auto) 4.7 Eos % (Auto) 1.3 Baso % (Auto) 1.0 Absolute Neuts (auto) 7.9 Absolute Lymphs (auto) 3.1 Absolute Monos (auto) 0.6 Absolute Eos (auto) 0.2 Absolute Basos (auto) 0.1 Seg Neutrophils % 67.2 Sodium 134.9 L Potassium 3.9 Chloride 98 Carbon Dioxide 30 Anion Gap 7 BUN 7 Creatinine 0.57 Est GFR ( Amer) > 60 Est GFR (MDRD) Non-Af > 60 Glucose 393 H Calcium 9.2 Total Bilirubin 0.5 Direct Bilirubin 0.2 Neonat Total Bilirubin Not Reportable Neonat Direct Bilirubin Not Reportable Neonat Indirect Bili Not Reportable AST 41 H ALT 50 H Alkaline Phosphatase 159 H Total Protein 7.2 Albumin 4.1 Lipase Urine Color STRAW Urine Appearance CLEAR Urine pH 6.0 Ur Specific [place] 1.033 Urine Protein NEGATIVE Urine Glucose (UA) >=500 H Urine Ketones NEGATIVE Urine Blood NEGATIVE Urine Nitrite NEGATIVE Urine Bilirubin NEGATIVE Urine Urobilinogen NEGATIVE Ur Leukocyte Esterase NEGATIVE Urine WBC (Auto) 0 Squamous Epi Cells Auto 2 Urine Ascorbic Acid NEGATIVE Urine HCG, Qual NEGATIVE 11/08/20 12:00 WBC RBC Hgb Hct MCV MCH MCHC RDW Plt Count Lymph % (Auto) [place] % (Auto) Eos % (Auto) Baso % (Auto) Absolute Neuts (auto) Absolute Lymphs (auto) Absolute Monos (auto) Absolute Eos (auto) Absolute Basos (auto) Seg Neutrophils % Sodium Potassium Chloride Carbon Dioxide Anion Gap BUN Creatinine Est GFR ( Amer) Est GFR (MDRD) Non-Af Glucose Calcium Total Bilirubin Direct Bilirubin Neonat Total Bilirubin Neonat Direct Bilirubin Neonat Indirect Bili AST ALT Alkaline Phosphatase Total Protein Albumin Lipase 474.7 H Urine Color Urine Appearance Urine pH Ur Specific [place] Urine Protein Urine Glucose (UA) Urine Ketones Urine Blood Urine Nitrite Urine Bilirubin Urine Urobilinogen Ur Leukocyte Esterase Urine WBC (Auto) Squamous Epi Cells Auto Urine Ascorbic Acid Urine HCG, Qual Critical Laboratory Results Reviewed: No Critical Results - Radiology Results Critical Radiology Results Reviewed: No Critical Results Discharge - Discharge Clinical Impression: Diabetes Qualifiers: Diabetes mellitus type: type 2 Diabetes mellitus fdc insulin use: without fdc use Diabetes mellitus complication status: with hyperglycemia Qualified Code(s): E11.65 - Type 2 diabetes mellitus with hyperglycemia Low back pain Qualifiers: Chronicity: unspecified Back pain laterality: bilateral Sciatica presence: without sciatica Qualified Code(s): M54.5 - Low back pain Condition: Stable Disposition: HOME, SELF-CARE Instructions: Diabetes ([facility]), Flank Pain ([facility]), Intravenous (IV) Fluids ([facility]), Low Back Pain ([facility]) Additional Instructions: Return immediately for any new or worsening symptoms: Worsening pain, fever, vomiting or any concerning symptoms Followup with your primary care provider, call tomorrow to make a followup appointment Increase oral fluids and stay well-hydrated Eat a diabetic diet Prescriptions: Blood-Glucose Meter [Blood Glucose Meter] 1 each MC BID #1 each Cyclobenzaprine HCl [Flexeril 10 Mg Tablet] 10 mg PO TID #15 tablet Metformin HCl [Glucophage 500 mg Tablet] 500 mg PO BID #60 tablet Naproxen [Naprosyn 250 Nmg Tablet] 1 tab PO BID #14 tablet Forms: Return to Work Referrals: [facility] [Provider Group] - Follow up tomorrow
--- NOTE | 2020-11-08 15:26 | RADIOLOGY REPORT (SQ) ---
EXAM DESCRIPTION: U/S ABDOMEN LIMITED W/O DOP IMAGES COMPLETED DATE/TIME: 11/08/2020 3:18 pm REASON FOR STUDY: flank pain, elevated lipase COMPARISON: None. TECHNIQUE: Dynamic and static grayscale images acquired of the abdomen and recorded on PACS. Additio nal selected color Doppler and spectral images recorded. Note: Study does not meet criteria for a complete doppler/duplex scan LIMITATIONS: None. FINDINGS: PANCREAS: No masses. Visualized pancreatic duct normal caliber. LIVER: Echotexture is coarse with increased echogenicity consistent with fatty infiltration. LIVER VASCULATURE: Normal directional flow of the main portal vein and hepatic veins. GALLBLADDER: No stones. Normal wall thickness. No pericholecystic fluid. ULTRASOUND-DETECTED CARDONA'S SIGN: Negative. INTRAHEPATIC DUCTS AND COMMON DUCT: CBD and intrahepatic ducts normal caliber. No filling defects. INFERIOR VENA CAVA: Normal flow. AORTA: No aneurysm. RIGHT KIDNEY: Normal size. Normal echogenicity. No solid or suspicious masses. No hydronephrosis. No calcifications. PERITONEAL AND PLEURAL SPACES: No ascites or effusions. OTHER: No other significant finding. IMPRESSION: FATTY LIVER. NO OTHER SIGNIFICANT FINDING. TECHNICAL DOCUMENTATION: JOB ID: [id number] 2010 [employer]- All Rights Reserved Reading location - IP/workstation name: [email or web address]
[2020-11-08 16:44] VITALS: BP 145/75
== END 2020-11-08 16:44 | disposition home or self-care (01) ==
LOC: ER 11:07
DX: E11.65 Type 2 diabetes mellitus with hyperglycemia (principal); M54.5 Low back pain; R10.9 Unspecified abdominal pain; R10.819 Abdominal tenderness, unspecified site; K76.0 Fatty (change of) liver, not elsewhere classified; F17.200 Nicotine dependence, unspecified, uncomplicated; Z87.442 Personal history of urinary calculi
CPT/HCPCS: 99285; 96361; 96374; 36415; 83690; 85025; 81025; 80053; 81001; 76705; J1885; J1815; J7030